=== PATIENT | female | born 1995 | race Caucasian/White ===

== ENCOUNTER 2020-07-17 16:50 | Emergency (ER) | payer OTHER, SELFPAY ==
--- NOTE | 2020-07-17 16:55 | ED.SKABFB ---
HPI - Skin/Abscess/Foreign Bdy General Chief complaint: Skin/Abscess/Foreign Body Stated complaint: back of right leg bite Time Seen by Provider: 07/17/20 16:56 Source: patient and RN notes reviewed History of Present Illness HPI narrative: Patient is a 24-year-old female who presents the urgent care with her mother (history of autism), with complaints of multiple mosquito bites to the right leg. Patient and mother both deny any use of itch cream or the use of antihistamines. [place]. States that the one behind the right knee has been concerning with a bruise around the area. Denies any fever, chills, nausea, vomiting. No other acute complaints. No acute distress noted. Patient aware of the plan of care. Some parts of this dictation were generated by voice recognition software and may contain typographical and/or grammatical inaccuracies. Related Data Allergies Allergy/AdvReac Type Severity Reaction Status Date / Time No Known Allergies Allergy Verified 07/17/20 17:11 Review of Systems Review of Systems: Narrative: CONSTITUTIONAL: Denies fever, chills, or sweats. EYES: Denies visual changes, redness, or discharge. ENT: Denies rhinorrhea, congestion, sore throat, or otalgia. CARDIOVASCULAR: Denies chest pain, palpitations, or edema. RESPIRATORY: Denies cough or dyspnea. GASTROINTESTINAL: Denies abdominal pain, nausea, vomiting, or diarrhea. GENITOURINARY: Denies dysuria or hematuria. SKIN: Reports of multiple mosquito bites to the lower legs, and a larger area behind the right knee MUSCULOSKELETAL: Denies back pain, joint pain, or myalgia. NEUROLOGIC: Denies headache, numbness, or weakness. All other systems reviewed are negative, except as documented in HPI. [facility], [facility] Past Medical History Medical History (Updated 07/17/20 @ 17:20 by VISH Jackson) Chronic migraine Depression Overactive bladder Family History Family History (Updated 04/15/20 @ 15:13 by Serenity Velázquez PA-C) Mother Thyroid cancer HLD (hyperlipidemia) Father HLD (hyperlipidemia) Father No problems noted. Sibling HLD (hyperlipidemia) Grandparent Thyroid cancer Hypertension HLD (hyperlipidemia) Heart disease Cerebrovascular accident Social History Social History (Updated 07/06/20 @ 15:14 by JACEK Knight Social History: Living at home with mom, will be attending [employer] school when able. Smoking status: Never smoker Alcohol intake: never Substance use: never Comments At the time of my signature, I reviewed and agree with the nursing past medical, surgical, social, and family history. There is no relevant family history pertinent to the patient complaint. Exam Narrative: Exam Narrative: GENERAL: This is a well-nourished, well-developed patient, in no apparent distress. HEAD: normocephalic, atraumatic. EYES: PERRL. Sclera clear/white. Vision is grossly intact. EARS: External ears normal NOSE: External nose normal with no obvious nasal discharge, nares without redness, no rhinorrhea. THROAT: Mucous membranes moist NECK: Neck supple, SKIN: Multiple insect bites noted to bilateral lower legs, worse to the right leg. 1 cm area of ecchymosis surrounding a 0.25 cm mosquito bite behind the right knee without any signs or symptoms of cellulitic infection. Warm, intact with no suspicious lesions or rash, good texture and turgor. NEURO: awake, alert, and oriented to person, place and time. There were no obvious focal neurologic abnormalities. EXTREMITIES: No clubbing, cyanosis, or edema. Course Vital Signs Vital signs: Vital Signs Temperature 98.4 F 07/17/20 17:00 Pulse Rate 80 07/17/20 17:00 Respiratory Rate 16 07/17/20 17:00 Blood Pressure 134/96 H 07/17/20 17:00 Pulse Oximetry 100 07/17/20 17:00 Temperature 98.4 F 07/17/20 17:00 Pulse Rate 80 07/17/20 17:00 Respiratory Rate 16 07/17/20 17:00 B
[2020-07-17 17:00] VITALS: BP 134/96; PULSE 80; RESP 16; TEMP 36.9; O2SAT 100
== END 2020-07-17 17:22 | disposition home or self-care (01) ==
PROVIDERS: Emergency Provider Nurse Practitioner Family; PCP Family Medicine
DX: S80.861A Insect bite (nonvenomous), right lower leg, initial encounter (principal); W57.XXXA Bitten or stung by nonvenomous insect and other nonvenomous arthropods, initial encounter; F32.9 Major depressive disorder, single episode, unspecified; F84.0 Autistic disorder
CPT/HCPCS: 99213; G0463